=== PATIENT | female | born 1930 | race Caucasian/White ===

== ENCOUNTER 2017-06-21 16:32 | Emergency (ER) | payer OTHER ==
[2017-06-21] MEDS ORDERED: ONDANSETRON 4 MG/2 ML VIAL ONE ×2 (17:43→19:22)
[2017-06-21] MEDS ORDERED: FENTANYL CITR 100 MCG/2 ML ONE (17:43)
[2017-06-21] MEDS ORDERED: NA CHLORIDE 0.9% 250 ML ONE (17:43)
[2017-06-21 17:50] LABS: Absolute Monocytes 0.6 K/uL (0.1-1.3); Absolute Neutrophil 4.2 K/uL (1.8-8.0); Basophils % 0.7 % (0-1.3); Eosinophils % 1.7 % (0-4.4); Hematocrit 42.6 % (36.0-45.0); Lymphocytes % 29.1 % (15.3-44.8); MCH 28.8 pg (27.0-35.0); MCV 87.5 fL (80-100); MPV 8.8 fL (7.6-11.3); Monocytes % 8.4 % (3.3-12.3); RBC Red Blood Cell Count 4.87 M/uL (3.86-4.86)
[2017-06-21 18:02] LABS: Potassium 3.4 mEq/L (3.6-5.0)
[2017-06-21 18:05] LABS: Albumin 3.7 g/dL (3.2-5.5); Bilirubin Total 0.6 mg/dL (0.3-1.2); Protein, Total 7.2 g/dL (6.0-8.3)
--- NOTE | 2017-06-21 18:05 | RAD REPORT ---
EXAM DESCRIPTION: RAD - Shoulder Left 2 View - 06/21/2017 5:49 pm CLINICAL HISTORY: Pain COMPARISON: None. FINDINGS: Subcoracoid dislocation of the humeral head is suspected. No gross fracture seen.
[2017-06-21] MEDS ORDERED: NA CHLORIDE 0.9% 1,000 ML ONE (18:34)
[2017-06-21] MEDS ORDERED: MIDAZOLAM HCL 2 MG/2 ML INJ ONE (18:41)
[2017-06-21] MEDS ORDERED: ETOMIDATE 20 MG/10 ML VIAL IV ONE (18:41)
--- NOTE | 2017-06-21 19:21 | ER ---
Nurse's Notes [facility] Name: Wilma Ascencio Age: 87 yrs Sex: Female : 1930 Arrival Date: 06/21/2017 Time: 16:33 Bed 8 Private MD: Griffin Beverly Diagnosis: Dislocation of other parts of left shoulder girdle-reduced;Essential (primary) hypertension Presentation: 06/21 16:39 Presenting complaint: Patient states: Mechanical fall from standing, denies trauma to la1 head or neck. Pain in left shoulder. Transition of care: patient was not received from another setting of care. Onset of symptoms was June 21, 2017. Initial Sepsis Screen: Does the patient meet any 2 criteria? No. Patient's initial sepsis screen is negative. Does the patient have a suspected source of infection? No. Patient's initial sepsis screen is negative. Care prior to arrival: None. 16:39 Method Of Arrival: Wheelchair la1 16:39 Acuity: ALAN 3 la1 17:00 Mechanism of Injury: No Mechanism of Injury. kr2 22:38 Trauma event details: Injury occurred in the [facility]. jd3 Trauma Activation: Not Applicable Physician: ED Physician; Name: ; Notified At: ; Arrived At: Physician: General Surgeon; Name: ; Notified At: ; Arrived At: Physician: Radiology; Name: ; Notified At: ; Arrived At: Physician: Respiratory; Name: ; Notified At: ; Arrived At: Physician: Lab; Name: ; Notified At: ; Arrived At: Historical: - Allergies: 16:40 Amoxicillin; la1 16:40 Codeine; la1 - PMHx: 16:40 Hyperlipidemia; Hypertension; la1 - Immunization history:: Adult Immunizations up to date. - Social history:: Smoking status: Patient/guardian denies using tobacco. - Immunization history: Last tetanus immunization: - up to date. - Family history:: not pertinent. Screenin:00 Abuse screen: Denies threats or abuse. Denies injuries from another. Nutritional kr2 screening: No deficits noted. Tuberculosis screening: No symptoms or risk factors identified. Fall Risk Fall in past 12 months (25 points). IV access (20 points). Primary Survey: 17:00 Breathing/Chest: Respiratory pattern: regular, Respiratory effort: spontaneous, kr2 unlabored, Breath sounds: clear, bilaterally. Chest inspection: symmetrical rise and fall of the chest. Circulation: Cardiac rhythm: sinus rhythm Pulses: palpable right radial artery and left radial artery. Disability Alert. 18:45 Reassessment Breathing/Chest Respiratory pattern Regular Respiratory effort Spontaneous kr2 Unlabored Circulation Heart rhythm Sinus rhythm Disability Alert. Assessment: 17:00 General: Appears in no apparent distress. uncomfortable, well groomed, well developed, kr2 well nourished, Behavior is calm, cooperative, appropriate for age. Pain: Complains of pain in left shoulder Pain radiates to left arm Pain currently is 10 out of 10 on a pain scale. Quality of pain is described as aching, Is continuous, Alleviated by nothing. Aggravated by repositioning. Neuro: Level of Consciousness is awake, alert, obeys commands, Oriented to person, place, time, situation, Appropriate for age. Cardiovascular: Denies chest pain, Capillary refill < 3 seconds in bilateral fingers Patient's skin is warm and dry. Respiratory: Airway is patent Respiratory effort is even, unlabored, Respiratory pattern is regular, symmetrical. GI: Abdomen is flat, non-distended. : No signs and/or symptoms were reported regarding the genitourinary system. Derm: Skin is intact, is fragile, Skin is pink, warm \T\ dry. Musculoskeletal: Circulation, motion, and sensation intact. Range of motion: limited in left shoulder Bony deformity noted of left shoulder. Injury Description: Deformity sustained to left shoulder is dislocated. 18:40 Reassessment: pt aa\T\ox4 at this time, pt son at bedside, pt was moved from ER bed 23 to ER bed 3 for Conscious sedation procedure, pt stated understanding of procedures to be done, pt son stated understanding of procedures, awaiting for closed shoulder reduction at this time. 19:30 Reassessment: Patient appears in no apparent distress at this time. Patient and/or sg family updated on plan of care and expected duration. Pain level reassessed. Patient is alert, oriented x 3, equal unlabored respirations, skin warm/dry/pink. pt reports feeling better, denies pain in the shoulder at this time, pt is aa\T\ox4, pt son at bedside to transport pt to residence. 19:50 Reassessment: Patient appears in no apparent distress at this time. Patient and/or sg family updated on plan of care and expected duration. Pain level reassessed. Patient is alert, oriented x 3, equal unlabored respirations, skin warm/dry/pink. at bedside re evaluating pt at this time, orders received for IV phenergan 6.25 mg, and a Head CT without contrast. 19:57 Reassessment: Patient appears in no apparent distress at this time. No changes from jd3 previously documented assessment. Patient and/or family updated on plan of care and expected duration. Pain level reassessed. Patient is alert, oriented x 3, equal unlabored respirations, skin warm/dry/pink. 20:17 Reassessment: Patient appears in no apparent distress at this time. Patient and/or jd3 family updated on plan of care and expected duration. Pain level reassessed. Patient is alert, oriented x 3, equal unlabored respirations, skin warm/dry/pink. pt back from CT, waiting on results before discharge. 20:45 Reassessment: pt appears to be sleeping, eyes closed, resp unlabored, IV site intact, bb patent with fluids infusing family at bedside. Awaiting son to return for transportation home, family verbalized understanding of and agree to plan of care discharge instructions given. 21:01 Reassessment: Family states pt is too sleepy to get up will monitor here for a short bb time until she is more alert. 21:58 Reassessment: Patient appears in no apparent distress at this time. No changes from jd3 previously documented assessment. Patient and/or family updated on plan of care and expected duration. Pain level reassessed. Patient is alert, oriented x 3, equal unlabored respirations, skin warm/dry/pink. 22:38 Reassessment: Patient appears in no apparent distress at this time. Patient and/or jd3 family updated on plan of care and expected duration. Pain level reassessed. Patient is alert, oriented x 3, equal unlabored respirations, skin warm/dry/pink. Patient states feeling better. Vital Signs: 16:40 BP 122 / 90; Pulse 84; Resp 16; Temp 98.3; Pulse Ox 98% on R/A; Weight 55.34 kg; Height la1 5 ft. 3 in. (160.02 cm); 18:00 BP 148 / 75; Pulse 80; Resp 16; Pulse Ox 99% on R/A; kr2 19:21 BP 178 / 94; Pulse 77; Resp 16; Pulse Ox 95% on R/A; mt 19:30 BP 175 / 90; Pulse 89; Resp 18; Pulse Ox 94% on R/A; sg 20:31 BP 134 / 76; Pulse 84; Resp 16; Pulse Ox 99% on 2 lpm NC; mt 20:47 BP 150 / 67; Pulse 77; Resp 14 S; Temp 97.6(O); Pulse Ox 98% on R/A; Pain 4/10; bb 22:34 BP 138 / 68; Pulse 60; Resp 16 S; Pulse Ox 98% on R/A; jd3 16:40 Body Mass Index 21.61 (55.34 kg, 160.02 cm) la1 Sepideh Coma Score: 17:00 Eye Response: spontaneous(4). Verbal Response: oriented(5). Motor Response: obeys kr2 commands(6). Total: 15. 19:30 Eye Response: spontaneous(4). Verbal Response: oriented(5). Motor Response: obeys sg commands(6). Total: 15. Trauma Score (Adult): 17:00 Eye Response: spontaneous(1); Verbal Response: oriented(1); Motor Response: obeys kr2 commands(2); Systolic BP: > 89 mm Hg(4); Respiratory Rate: 10 to 29 per min(4); Sepideh Score: 15; Trauma Score: 12 19:30 Eye Response: spontaneous(1); Verbal Response: oriented(1); Motor Response: obeys sg commands(2); Systolic BP: > 89 mm Hg(4); Respiratory Rate: 10 to 29 per min(4); Sepideh Score: 15; Trauma Score: 12 ED Course: 16:33 Patient arrived in ED. as 16:33 Griffin Beverly MD is Private Physician. as 16:40 Triage completed. la1 16:41 Arm band placed on left wrist. la1 17:00 Patient has correct armband on for positive identification. Bed in low position. Call kr2 light in reach. Side rails up X2. Adult w/ patient. 17:00 Patient maintains SpO2 saturation greater than 95% on room air. kr2 17:00 Thermoregulation: warm blanket given to patient. kr2 17:11 Christopher Day MD is Attending Physician. [facility] 17:24 Hiral Yu, RN is Primary Nurse. kr2 17:40 Inserted saline lock: 24 gauge in right forearm, using aseptic technique. Blood kr2 collected. 17:49 Shoulder Left (2 View) XRAY In Process Unspecified. EDMS 18:15 Patient accidentally pulled IV out. Catheter intact, bleeding controlled, pressure kr2 dressing applied. 18:24 Inserted saline lock: 22 gauge in right forearm, using aseptic technique. dh3 18:48 Consent for conscious sedation explained by staff, explained by physician, signed by kr2 guardian. 19:09 X-ray completed. Portable x-ray completed in exam room. Patient tolerated procedure ag1 well. Note: POST REDUCTION. 19:11 Shoulder (1 View) XRAY In Process Unspecified. EDMS 19:20 Griffin Beverly MD is Referral Physician. viktor 19:20 Guillermo Ramirez MD is Referral Physician. viktor 20:[address] via stretcher. sg 20:07 CT completed. Patient moved back from CT. cw1 20:08 CT Head Brain wo Cont In Process Unspecified. EDMS 20:48 IV discontinued, intact, bleeding controlled, No redness/swelling at site. Pressure bb dressing applied. 22:35 Assist provider with reduction of left shoulder. jd3 Administered Medications: 17:52 Drug: fentaNYL (PF) 25 mcg Route: IVP; Site: right wrist; kr2 17:53 Drug: NS 0.9% 250 ml Route: IV; Rate: bolus; Site: right wrist; kr2 17:54 CANCELLED (Duplicate Order): Zofran 4 mg IM once kr2 17:55 Drug: Zofran 4 mg Route: IVP; Site: right wrist; kr2 18:37 Drug: NS 0.9% 1000 ml Route: IV; Rate: 125 ml/hr; Site: right forearm; ss 18:37 Drug: fentaNYL (PF) 25 mcg Route: IVP; Site: right forearm; ss 22:46 Follow up: Response: Pain is decreased jd3 18:45 Drug: Etomidate 8 mg Route: IVP; Site: right antecubital; sg 19:15 Follow up: Response: No adverse reaction sg 18:48 Drug: Versed 2 mg Route: IVP; Site: right antecubital; sg 19:15 Follow up: Response: No adverse reaction sg 19:30 Drug: Zofran 4 mg Route: IVP; Site: right antecubital; sg 19:52 Follow up: Response: No adverse reaction; Nausea is decreased sg 19:36 Not Given (Physician Discretion): Etomidate 10 mg IVP once; hold for procedure sg 20:01 Drug: Phenergan 6.25 mg Route: IVP; Site: right antecubital; sg 22:46 Follow up: Response: Nausea is decreased jd3 Intake: 17:00 PO: 0ml; Total: 0ml. kr2 Outcome: 19:20 Discharge ordered by MD. hoang 22:36 Discharged to home via wheelchair. jd3 22:36 Condition: stable 22:36 Discharge instructions given to patient, family, Instructed on discharge instructions, follow up and referral plans. Demonstrated understanding of instructions, follow-up care. 22:37 Patient's length of stay in the Emergency Department was greater than 2 hours. jd3 Patient's length of stay was extended due to staffing issues within the emergency department. pt coming out of sedationPatient's length of stay extended due to 22:39 Patient left the ED. jd3 Signatures: Dispatcher [employer] EDMS Reji Abel, RN RN Christopher Darby MD MD cha Martinez, Amelia as Ballard, Brenda RN Heike Mena RN RN ss Woodley, Crystal cw1 Indio Grey RN RN Mariana Peterson Moriah mt Herrera, Deanna 3 Danilo Tomas RN RN jd3 Hiral Yu RN RN kr2 Corrections: (The following items were deleted from the chart) 18:43 17:00 Fall Risk None identified. kr2 kr2 19:36 18:45 Etomidate 10 mg IVP in right antecubital sg sg
--- NOTE | 2017-06-21 19:21 | EDPHYS ---
Physician Documentation [facility] Name: Wilma Ascencio Age: 87 yrs Sex: Female : 1930 Arrival Date: 06/21/2017 Time: 16:33 Bed 8 Private MD: Griffin Beverly ED Physician Christopher Day HPI: 06/21 17:21 This 87 yrs old Female presents to ER via Wheelchair with complaints of Fall viktor Injury, Shoulder Pain. 17:21 Details of fall: The patient fell from an upright position, while walking. Onset: The viktor symptoms/episode began/occurred just prior to arrival. Associated injuries: The patient sustained anterior aspect of left shoulder and posterior aspect of left shoulder, decreased range of motion, painful injury, swelling. Severity of symptoms: At their worst the symptoms were mild, moderate, in the emergency department the symptoms are unchanged. Historical: - Allergies: 16:40 Amoxicillin; la1 16:40 Codeine; la1 - PMHx: 16:40 Hyperlipidemia; Hypertension; la1 - Immunization history:: Adult Immunizations up to date. - Social history:: Smoking status: Patient/guardian denies using tobacco. - Immunization history: Last tetanus immunization: - up to date. - Family history:: not pertinent. ROS: 17:21 Constitutional: Negative for fever, chills, and weight loss, Eyes: Negative for injury, viktor pain, redness, and discharge, ENT: Negative for injury, pain, and discharge, Neck: Negative for injury, pain, and swelling, Cardiovascular: Negative for chest pain, palpitations, and edema, Respiratory: Negative for shortness of breath, cough, wheezing, and pleuritic chest pain, Abdomen/GI: Negative for abdominal pain, nausea, vomiting, diarrhea, and constipation, Back: Negative for injury and pain, : Negative for injury, bleeding, discharge, and swelling, Skin: Negative for injury, rash, and discoloration, Neuro: Negative for headache, weakness, numbness, tingling, and seizure, Psych: Negative for depression, anxiety, suicide ideation, homicidal ideation, and hallucinations, Allergy/Immunology: Negative for hives, rash, and allergies, Endocrine: Negative for neck swelling, polydipsia, polyuria, polyphagia, and marked weight changes, Hematologic/Lymphatic: Negative for swollen nodes, abnormal bleeding, and unusual bruising. 17:21 MS/extremity: Positive for injury or acute deformity, decreased range of motion, tenderness, of the anterior aspect of left shoulder and posterior aspect of left shoulder. Exam: 17:21 Constitutional: This is a well developed, well nourished patient who is awake, alert, viktor and in no acute distress. Head/Face: Normocephalic, atraumatic. Eyes: Pupils equal round and reactive to light, extra-ocular motions intact. Lids and lashes normal. Conjunctiva and sclera are non-icteric and not injected. Cornea within normal limits. Periorbital areas with no swelling, redness, or edema. ENT: Nares patent. No nasal discharge, no septal abnormalities noted. Tympanic membranes are normal and external auditory canals are clear. Oropharynx with no redness, swelling, or masses, exudates, or evidence of obstruction, uvula midline. Mucous membranes moist. Neck: Trachea midline, no thyromegaly or masses palpated, and no cervical lymphadenopathy. Supple, full range of motion without nuchal rigidity, or vertebral point tenderness. No Meningismus. Chest/axilla: Normal chest wall appearance and motion. Nontender with no deformity. No lesions are appreciated. Cardiovascular: Regular rate and rhythm with a normal S1 and S2. No gallops, murmurs, or rubs. Normal PMI, no JVD. No pulse deficits. Respiratory: Lungs have equal breath sounds bilaterally, clear to auscultation and percussion. No rales, rhonchi or wheezes noted. No increased work of breathing, no retractions or nasal flaring. Abdomen/GI: Soft, non-tender, with normal bowel sounds. No distension or tympany. No guarding or rebound. No evidence of tenderness throughout. Back: No spinal tenderness. No costovertebral tenderness. Full range of motion. Female : Normal external genitalia. Skin: Warm, dry with normal turgor. Normal color with no rashes, no lesions, and no evidence of cellulitis. Neuro: Awake and alert, GCS 15, oriented to person, place, time, and situation. Cranial nerves II-XII grossly intact. Motor strength 5/5 in all extremities. Sensory grossly intact. Cerebellar exam normal. Normal gait. Psych: Awake, alert, with orientation to person, place and time. Behavior, mood, and affect are within normal limits. 17:21 Musculoskeletal/extremity: Extremities: noted in the anterior aspect of left shoulder and posterior aspect of left shoulder: decreased ROM, pain, tenderness. Vital Signs: 16:40 BP 122 / 90; Pulse 84; Resp 16; Temp 98.3; Pulse Ox 98% on R/A; Weight 55.34 kg; Height la1 5 ft. 3 in. (160.02 cm); 18:00 BP 148 / 75; Pulse 80; Resp 16; Pulse Ox 99% on R/A; kr2 19:21 BP 178 / 94; Pulse 77; Resp 16; Pulse Ox 95% on R/A; mt 19:30 BP 175 / 90; Pulse 89; Resp 18; Pulse Ox 94% on R/A; sg 20:31 BP 134 / 76; Pulse 84; Resp 16; Pulse Ox 99% on 2 lpm NC; mt 20:47 BP 150 / 67; Pulse 77; Resp 14 S; Temp 97.6(O); Pulse Ox 98% on R/A; Pain 4/10; bb 22:34 BP 138 / 68; Pulse 60; Resp 16 S; Pulse Ox 98% on R/A; jd3 16:40 Body Mass Index 21.61 (55.34 kg, 160.02 cm) la1 Sepideh Coma Score: 17:00 Eye Response: spontaneous(4). Verbal Response: oriented(5). Motor Response: obeys kr2 commands(6). Total: 15. 19:30 Eye Response: spontaneous(4). Verbal Response: oriented(5). Motor Response: obeys sg commands(6). Total: 15. Trauma Score (Adult): 17:00 Eye Response: spontaneous(1); Verbal Response: oriented(1); Motor Response: obeys kr2 commands(2); Systolic BP: > 89 mm Hg(4); Respiratory Rate: 10 to 29 per min(4); Sepideh Score: 15; Trauma Score: 12 19:30 Eye Response: spontaneous(1); Verbal Response: oriented(1); Motor Response: obeys sg commands(2); Systolic BP: > 89 mm Hg(4); Respiratory Rate: 10 to 29 per min(4); Sepideh Score: 15; Trauma Score: 12 Procedures: 18:10 Reduction: of the left shoulder, using traction, manipulation, Immobilized with [facility] shoulder immobilizer. Patient tolerated well. Post reduction film - reveals normal alignment. MDM: 17:12 Patient medically screened. [facility] 17:22 Data reviewed: vital signs, nurses notes, lab test result(s), EKG, radiologic studies, [facility] plain films. 06/21 17:20 Order name: CBC with Diff; Complete Time: 18:05 [facility] 06/21 17:20 Order name: Comprehensive Metabolic Panel; Complete Time: 18:05 [facility] 06/21 17:20 Order name: Shoulder Left (2 View) XRAY; Complete Time: 18:07 [facility] 06/21 19:06 Order name: Shoulder (1 View) XRAY; Complete Time: 20:45 06/21 19:51 Order name: CT Head Brain wo Cont; Complete Time: 20:45 [facility] 06/21 17:20 Order name: EKG; Complete Time: 17:21 [facility] 06/21 17:20 Order name: EKG - Nurse/Tech; Complete Time: 17:56 [facility] 06/21 17:20 Order name: NPO; Complete Time: 17:25 [facility] 06/21 18:11 Order name: Shoulder Immobilizer; Complete Time: 19:35 [facility] Administered Medications: 17:52 Drug: fentaNYL (PF) 25 mcg Route: IVP; Site: right wrist; kr2 17:53 Drug: NS 0.9% 250 ml Route: IV; Rate: bolus; Site: right wrist; kr2 17:54 CANCELLED (Duplicate Order): Zofran 4 mg IM once kr2 17:55 Drug: Zofran 4 mg Route: IVP; Site: right wrist; kr2 18:37 Drug: NS 0.9% 1000 ml Route: IV; Rate: 125 ml/hr; Site: right forearm; ss 18:37 Drug: fentaNYL (PF) 25 mcg Route: IVP; Site: right forearm; ss 22:46 Follow up: Response: Pain is decreased jd3 18:45 Drug: Etomidate 8 mg Route: IVP; Site: right antecubital; sg 19:15 Follow up: Response: No adverse reaction sg 18:48 Drug: Versed 2 mg Route: IVP; Site: right antecubital; sg 19:15 Follow up: Response: No adverse reaction sg 19:30 Drug: Zofran 4 mg Route: IVP; Site: right antecubital; sg 19:52 Follow up: Response: No adverse reaction; Nausea is decreased sg 19:36 Not Given (Physician Discretion): Etomidate 10 mg IVP once; hold for procedure sg 20:01 Drug: Phenergan 6.25 mg Route: IVP; Site: right antecubital; sg 22:46 Follow up: Response: Nausea is decreased jd3 Disposition: 06/21/17 19:20 Discharged to Home. Impression: Dislocation of other parts of left shoulder girdle - reduced, Essential (primary) hypertension. - Condition is Stable. - Discharge Instructions: Shoulder Dislocation, Hypertension, Shoulder Pain, Shoulder Pain, [id number], Hypertension, [id number], Shoulder Dislocation, [id number]. - Prescriptions for Tramadol 50 mg Oral Tablet - take 1 tablet by ORAL route every 8 hours as needed; 20 tablet. Motrin IB 200 mg Oral Tablet - take 1 tablet by ORAL route every 6 hours As needed as needed with food; 20 tablet. Zofran 4 mg Oral Tablet - take 1 tablet by ORAL route every 12 hours As needed; 14 tablet. - Medication Reconciliation Form, Thank You Letter, Antibiotic Education, Prescription Opioid Use form. - Follow up: Griffin Beverly; When: 2 - 3 days; Reason: Recheck today's complaints, Continuance of care, Re-evaluation by your physician. Follow up: Dr. Guillermo Ramirez; When: 1 - 2 days; Reason: Recheck today's complaints, Re-evaluation by your physician. - Problem is new. - Symptoms have improved. Signatures: Dispatcher [employer] EDDC Sophia Galo, LABORATORY SUPERVISOR-C LABORATORY SUPERVISOR-Ckb Reji Abel RN RN Christopher Darby MD MD cha Smirch, Shelby RN MCKENNA ss Indio Grey RN RN la1 Danilo Tomas RN RN Hiral Basurto RN RN kr2 Corrections: (The following items were deleted from the chart) 17:54 17:20 Zofran 4 mg IM once ordered. viktor garcia
--- NOTE | 2017-06-21 19:36 | RAD REPORT ---
EXAM DESCRIPTION: RAD - Shoulder 1 View - 06/21/2017 7:10 pm CLINICAL HISTORY: Post reduction COMPARISON: Pre reduction radiographs. FINDINGS: Previously noted humeral head dislocation has been reduced. No gross fracture seen.
[2017-06-21] MEDS ORDERED: PROMETHAZINE 25 MG/ML VIAL ONE (19:57)
--- NOTE | 2017-06-21 20:20 | RAD REPORT ---
EXAM DESCRIPTION: CT - Head Brain Wo Cont - 06/21/2017 8:09 pm CLINICAL HISTORY: Fall, head injury COMPARISON: 10/04/2015 TECHNIQUE: All CT scans are performed using dose optimization technique as appropriate and may inclu de automated exposure control or mA/KV adjustment according to patient size. FINDINGS: No intracranial hemorrhage, hydrocephalus or extra-axial fluid collection.Mild generalized brain atrophy is present with moderate periventricular and deep white matter chronic microvascular i schemic changes.No areas of brain edema or evidence of midline shift. The paranasal sinuses and mastoids are clear. The calvarium is intact. IMPRESSION: No acute intracranial abnormality.
--- NOTE | 2017-06-22 07:04 | EKG ---
Test Date: 2017-06-21 Test Time: 18:06:37 Slabbing Machine Operator: [place] MEASUREMENT RESULTS: Intervals: Rate: 88 NE: 140 QRSD: 80 QT: 374 QTc: 452 [place]: P: 74 NE: 140 QRS: 48 T: 80 INTERPRETIVE STATEMENTS: Normal sinus rhythm normal ECG Compared to ECG 10/30/2015 07:34:09 no significant change from previous ECG Electronically Signed On 06-22-17 07:03:31 CDT by Marino Mckeon
== END 2017-06-21 22:39 | disposition home or self-care (01) ==
LOC: ER 16:32
PROC: 0RSKXZZ Reposition Left Shoulder Joint, External Approach (ICD-10-PCS; principal; 2017-06-21)
DX: S43.395A Dislocation of other parts of left shoulder girdle, initial encounter (principal); W18.30XA Fall on same level, unspecified, initial encounter; Y93.01 Activity, walking, marching and hiking; Y92.9 Unspecified place or not applicable; I10 Essential (primary) hypertension; Z88.5 Allergy status to narcotic agent; Z88.0 Allergy status to penicillin
CPT/HCPCS: 23650; 36415; 70450; 73020; 73030; 80053; 85025; 93005; 99285; J2250; J2405 ×2; J2550; J3010; J7030

== ENCOUNTER 2017-06-22 00:20 | Observation (INO) | payer OTHER ==
[2017-06-22 01:19] LABS: Absolute Lymphocytes (CBC) 0.8 K/uL (0.7-4.9); Absolute Monocytes 1.1 K/uL (0.1-1.3); Absolute Neutrophil 12.2 K/uL (1.8-8.0); Basophils % 0.3 % (0-1.3); Hematocrit 37.6 % (36.0-45.0); Lymphocytes % 5.8 % (15.3-44.8); MCH 28.5 pg (27.0-35.0); MCV 87.4 fL (80-100); MPV 9.4 fL (7.6-11.3); Monocytes % 7.9 % (3.3-12.3); RBC Red Blood Cell Count 4.31 M/uL (3.86-4.86)
[2017-06-22 02:09] LABS: Blood Morphology Comment NOT SEEN (NOT SEEN); Platelet Estimate ADEQ; Urine White Blood Cell Casts OK
[2017-06-22 03:48] LABS: Potassium 4.4 mEq/L (3.6-5.0)
[2017-06-22 04:13] LABS: Albumin 3.8 g/dL (3.2-5.5); Bilirubin Direct 0.1 mg/dL (0-0.2); Bilirubin Total 0.6 mg/dL (0.3-1.2); CKMB Creatine Kinase MB 9.9 ng/ml (0.3-4.0); Magnesium 1.7 mg/dL (1.8-2.5); Protein, Total 5.9 g/dL (6.0-8.3)
--- NOTE | 2017-06-22 04:39 | EDPHYS ---
Physician Documentation [facility] Name: Wilma Ascencio Age: 87 yrs Sex: Female : 1930 Arrival Date: 06/22/2017 Time: 00:21 Bed 6 Private MD: ED Physician Jimmy Santiago HPI: 06/22 01:47 This 87 yrs old Female presents to ER via EMS with complaints of unresponsive.tw4 01:47 The patient presents with decreased responsiveness. Onset: The symptoms/episode tw4 began/occurred today. Possible causes: CVA or TIA, unknown. Associated signs and symptoms: The patient has no apparent associated signs or symptoms. 01:51 The patient has been recently seen at the [facility] Emergency tw4 Department, just prior to arrival, just seen and released. Pt just had conscious sedation for reduction of shoulder. Historical: - Allergies: 00:27 Codeine; bp 00:27 Amoxicillin; bp - Home Meds: 00:27 Verapamil Oral [Active]; aspirin 81 mg Oral TbEC 1 tab once daily [Active]; bp atorvastatin Oral [Active]; - PMHx: 00:27 Hypertension; Hyperlipidemia; bp - Immunization history:: Adult Immunizations up to date. - Social history:: Smoking status: Patient/guardian denies using tobacco. ROS: 01:52 Constitutional: Negative for fever, chills, and weight loss, Cardiovascular: Negative tw4 for chest pain, palpitations, and edema, Respiratory: Negative for shortness of breath, cough, wheezing, and pleuritic chest pain, Abdomen/GI: Negative for abdominal pain, nausea, vomiting, diarrhea, and constipation, Back: Negative for injury and pain, Skin: Negative for injury, rash, and discoloration, Neuro: Negative for headache, weakness, numbness, tingling, and seizure. Exam: 03:10 Constitutional: This is a well developed, well nourished patient who is awake, alert, tw4 and in no acute distress. Head/Face: Normocephalic, atraumatic. Cardiovascular: Regular rate and rhythm with a normal S1 and S2. No gallops, murmurs, or rubs. Normal PMI, no JVD. No pulse deficits. Respiratory: Lungs have equal breath sounds bilaterally, clear to auscultation and percussion. No rales, rhonchi or wheezes noted. No increased work of breathing, no retractions or nasal flaring. Abdomen/GI: Soft, non-tender, with normal bowel sounds. No distension or tympany. No guarding or rebound. No evidence of tenderness throughout. Back: No spinal tenderness. No costovertebral tenderness. Full range of motion. MS/ Extremity: Pulses equal, no cyanosis. Neurovascular intact. Full, normal range of motion. Neuro: Awake and alert, GCS 15, oriented to person, place, time, and situation. Cranial nerves II-XII grossly intact. Motor strength 5/5 in all extremities. Sensory grossly intact. Cerebellar exam normal. Normal gait. 03:10 ECG was reviewed by the Attending Physician. Vital Signs: 00:27 BP 142 / 99; Pulse 63; Resp 16; Temp 98; Pulse Ox 100% on R/A; Weight 49.9 kg (R); bp 01:19 BP 143 / 78; Pulse 62; Resp 17 S; Pulse Ox 100% on 2 lpm NC; jd3 02:24 BP 141 / 68; Pulse 64; Resp 17 S; Pulse Ox 100% on 2 lpm NC; jd3 03:24 BP 129 / 58; Pulse 67; Resp 17 S; Pulse Ox 100% on 2 lpm NC; jd3 04:03 BP 127 / 57; Pulse 63; Resp 18 S; Pulse Ox 100% on R/A; Pain 0/10; jd3 05:08 BP 132 / 62; Pulse 63; Resp 17 S; Pulse Ox 100% on 2 lpm NC; Pain 0/10; jd3 06:20 BP 154 / 70; Pulse 71; Resp 17 S; Pulse Ox 100% on R/A; jd3 MDM: 00:32 Patient medically screened. tw4 04:39 Differential Diagnosis: electrolyte abnormality, alcohol intoxication, pneumonia. Data tw4 reviewed: vital signs, nurses notes. Counseling: I had a detailed discussion with the patient and/or guardian regarding: the historical points, exam findings, and any diagnostic results supporting the discharge/admit diagnosis. Physician consultation: Jt Hammonds MD regarding admission, patient's condition, need to come to ED to see patient, and will see patient in ED. Admission orders: after a detailed discussion of the patient's condition and case, the admit orders are written by me. 06/22 00:33 Order name: Basic Metabolic Panel 06/22 00:33 Order name: BNP; Complete Time: 03:54 06/22 00:33 Order name: CBC with Diff; Complete Time: 02:28 06/22 04:41 Interpretation: Normal except: WBC 14.1; LYM% 5.8; JOSE% 86.0; NEUT A 12.2. 06/22 00:33 Order name: Ckmb; Complete Time: 04:40 06/22 04:40 Interpretation: Abnormal: CKMB 9.9. 06/22 00:33 Order name: CPK; Complete Time: 04:40 06/22 04:40 Interpretation: Abnormal: CPK 410. 06/22 00:33 Order name: LFT's; Complete Time: 04:40 06/22 04:40 Interpretation: Abnormal: GLOB 2.1; TP 5.9. 06/22 00:33 Order name: Magnesium; Complete Time: 04:40 06/22 04:41 Interpretation: Abnormal: MG 1.7. 06/22 00:33 Order name: PT-INR; Complete Time: 03:54 06/22 00:33 Order name: Ptt, Activated; Complete Time: 03:54 06/22 00:33 Order name: Troponin (emerg Dept Use Only); Complete Time: 03:54 06/22 00:33 Order name: EKG; Complete Time: 00:33 06/22 00:33 Order name: Cardiac monitoring; Complete Time: 00:35 06/22 00:33 Order name: Basic Metabolic Panel; Complete Time: 04:40 ED06/22 04:41 Interpretation: Normal except: CA 8.7; GLUC 129; NA 132. 06/22 02:09 Order name: CBC Smear Scan; Complete Time: 02:28 EDMS 06/22 00:33 Order name: EKG - Nurse/Tech; Complete Time: 00:49 06/22 00:33 Order name: IV Saline Lock; Complete Time: 01:18 06/22 00:33 Order name: Labs collected and sent; Complete Time: 01:18 06/22 00:33 Order name: O2 Per Protocol; Complete Time: 00:35 06/22 00:33 Order name: O2 Sat Monitoring; Complete Time: 00:35 tw4 EC:10 Rate is 62 beats/min. Rhythm is regular. QRS [place] is Normal. HI interval is normal. QRS tw4 interval is normal. QT interval is normal. No Q waves. T waves are Normal. No ST changes noted. Clinical impression: Normal ECG. Interpreted by me. Reviewed by me. Administered Medications: No medications were administered Disposition: 06/22/17 04:39 Hospitalization ordered by Jt Hammonds for Observation. Preliminary diagnosis is Altered mental status, unspecified. - Bed requested for Telemetry/MedSurg (observation). - Status is Observation. jd3 - Condition is Stable. - Problem is new. - Symptoms have improved. UTI on Admission? No Signatures: Dispatcher [employer] EDGeorgina Salamanca RN Danilo Bird RN RN jd3 Peltier, Brian, RN RN bp Wadley, Terrence, MD MD tw4
--- NOTE | 2017-06-22 04:39 | ER ---
Nurse's Notes [facility] Name: Wilma Ascencio Age: 87 yrs Sex: Female : 1930 Arrival Date: 06/22/2017 Time: 00:21 Bed 6 Private MD: Diagnosis: Altered mental status, unspecified Presentation: 06/22 00:25 Presenting complaint: EMS states: SHE WAS UNRESPONSIVE ON SCENE, INITIAL BP 67/35. bp Transition of care: patient was not received from another setting of care. Onset of symptoms is unknown. Initial Sepsis Screen: Does the patient meet any 2 criteria? No. Patient's initial sepsis screen is negative. Does the patient have a suspected source of infection? No. Patient's initial sepsis screen is negative. Care prior to arrival: Glucose check: 172. 00:25 Method Of Arrival: EMS: [facility] bp 00:25 Acuity: ALAN 3 bp Triage Assessment: 00:27 General: Appears in no apparent distress. comfortable, slender, Behavior is calm, bp cooperative, appropriate for age. Pain: Denies pain. EENT: No deficits noted. Neuro: Level of Consciousness is awake, alert, obeys commands, Oriented to person, place, time, situation, Appropriate for age. Cardiovascular: Rhythm is sinus bradycardia. Respiratory: Airway is patent Respiratory effort is even, unlabored, Respiratory pattern is regular, symmetrical. GI: No deficits noted. : No signs and/or symptoms were reported regarding the genitourinary system. Derm: No deficits noted. Musculoskeletal: No signs and/or symptoms reported regarding the musculoskeletal system. Historical: - Allergies: 00:27 Codeine; bp 00:27 Amoxicillin; bp - Home Meds: 00:27 Verapamil Oral [Active]; aspirin 81 mg Oral TbEC 1 tab once daily [Active]; bp atorvastatin Oral [Active]; - PMHx: 00:27 Hypertension; Hyperlipidemia; bp - Immunization history:: Adult Immunizations up to date. - Social history:: Smoking status: Patient/guardian denies using tobacco. Screenin:31 Abuse screen: Denies threats or abuse. Denies injuries from another. Nutritional bp screening: No deficits noted. Tuberculosis screening: No symptoms or risk factors identified. Fall Risk None identified. No fall in past 12 months (0 pts). No secondary diagnosis (0 pts). No IV (0 pts). Ambulatory Aid- Crutches/Cane/Walker (15 pts). Gait- Weak (10 pts.). Mental Status- Oriented to own ability (0 pts). Total [place]una Fall Scale indicates No Risk (0-24 pts). Assessment: 00:31 General: Appears in no apparent distress. uncomfortable, Behavior is calm, cooperative, jd3 appropriate for age. Pain: Complains of pain in left shoulder. Neuro: Level of Consciousness is awake, alert, obeys commands, Oriented to person, place, time, situation, Jig Builder Helper are equal bilaterally Gait is unsteady, Speech is normal, Pupils are PERRLA, Intact Reports dizziness. Cardiovascular: Heart tones S1 S2 present Capillary refill < 3 seconds Patient's skin is warm and dry. Respiratory: Airway is patent Respiratory effort is even, unlabored, Respiratory pattern is regular, symmetrical, Breath sounds are clear bilaterally. GI: Abdomen is round Patient currently denies nausea, vomiting. : No signs and/or symptoms were reported regarding the genitourinary system. EENT: No signs and/or symptoms were reported regarding the EENT system. Derm: Skin is intact, Skin is dry, Skin is normal, Skin temperature is warm. Musculoskeletal: Circulation, motion, and sensation intact. Range of motion: limited in left shoulder. 01:19 Reassessment: Patient appears in no apparent distress at this time. Patient and/or jd3 family updated on plan of care and expected duration. Pain level reassessed. Patient is alert, oriented x 3, equal unlabored respirations, skin warm/dry/pink. 01:31 Reassessment: contact number for Felton Ascencio pt's son [phone]. 02:26 Reassessment: Patient appears in no apparent distress at this time. Patient and/or jd3 family updated on plan of care and expected duration. Pain level reassessed. Patient is alert, oriented x 3, equal unlabored respirations, skin warm/dry/pink. pt resting in bed with eyes closed, even and unlabored respirations, no distress noted at this time. 03:25 Reassessment: Patient appears in no apparent distress at this time. No changes from jd3 previously documented assessment. Patient and/or family updated on plan of care and expected duration. Pain level reassessed. Patient is alert, oriented x 3, equal unlabored respirations, skin warm/dry/pink. 04:03 Reassessment: Patient appears in no apparent distress at this time. No changes from jd3 previously documented assessment. Patient and/or family updated on plan of care and expected duration. Pain level reassessed. Patient is alert, oriented x 3, equal unlabored respirations, skin warm/dry/pink. 05:09 Reassessment: Patient appears in no apparent distress at this time. No changes from jd3 previously documented assessment. Patient and/or family updated on plan of care and expected duration. Pain level reassessed. Patient is alert, oriented x 3, equal unlabored respirations, skin warm/dry/pink. 05:50 Reassessment: report called to 4th floor, nurse in room, was told they would call back. jd3 06:20 Reassessment: Patient appears in no apparent distress at this time. Patient and/or jd3 family updated on plan of care and expected duration. Pain level reassessed. Patient is alert, oriented x 3, equal unlabored respirations, skin warm/dry/pink. pt reported understanding on need for admit, report given to Gaby ANDRES on 4th floor. Vital Signs: 00:27 BP 142 / 99; Pulse 63; Resp 16; Temp 98; Pulse Ox 100% on R/A; Weight 49.9 kg (R); bp 01:19 BP 143 / 78; Pulse 62; Resp 17 S; Pulse Ox 100% on 2 lpm NC; jd3 02:24 BP 141 / 68; Pulse 64; Resp 17 S; Pulse Ox 100% on 2 lpm NC; jd3 03:24 BP 129 / 58; Pulse 67; Resp 17 S; Pulse Ox 100% on 2 lpm NC; jd3 04:03 BP 127 / 57; Pulse 63; Resp 18 S; Pulse Ox 100% on R/A; Pain 0/10; jd3 05:08 BP 132 / 62; Pulse 63; Resp 17 S; Pulse Ox 100% on 2 lpm NC; Pain 0/10; jd3 06:20 BP 154 / 70; Pulse 71; Resp 17 S; Pulse Ox 100% on R/A; jd3 ED Course: 00:21 Patient arrived in ED. al2 00:25 Wong Minaya, RN is Primary Nurse. bp 00:26 Triage completed. bp 00:30 Arm band placed on. bp 00:31 Primary Nurse role handed off by Wong Minaya, MCKENNA jyamilka 00:31 Danilo Tomas, RN is Primary Nurse. jd3 00:31 Patient has correct armband on for positive identification. Placed in gown. Bed in low bp position. Call light in reach. Side rails up X2. Adult w/ patient. 00:32 Jimmy Santiago MD is Attending Physician. tw4 00:49 EKG done, by ED staff, reviewed by Jimmy Santiago MD. Missed attempt(s): 22 gauge in wi right antecubital area. 01:00 Missed attempt(s): 22 gauge in left hand. Bleeding controlled, band aid applied, bb catheter tip intact. 01:05 Initial lab(s) drawn, by me, sent to lab. Inserted saline lock: 22 gauge in right bb forearm, using aseptic technique. Blood collected. 03:23 Lab(s) recollected, by me, sent to lab. bb 04:38 Jt Hammonds MD is Hospitalizing Provider. tw4 05:53 No provider procedures requiring assistance completed. Patient admitted, IV remains in jd3 place. Administered Medications: No medications were administered Outcome: 04:39 Decision to Hospitalize by Provider. tw4 06:21 Admitted to Tele accompanied by [facility], via wheelchair, room 412, with chart, Report jd3 called to Gaby ANDRES 06:21 Condition: stable 06:21 Instructed on the need for admit. 06:28 Patient left the ED. jd3 Signatures: La Thurman RN RN bb Thompson, Moriah wi Danilo Tomas RN RN jd3 Peltier, Brian, Ina Stevens RN, Terrence, MD MD tw4
--- NOTE | 2017-06-22 05:37 | P.HP ---
Certification for Inpatient Patient admitted to: Observation With expected LOS: <2 Midnights Practitioner: I am a practitioner with admitting privileges, knowledge of patient current condition, hospital course, and medical plan of care. Services: Services provided to patient in accordance with Admission requirements found in Title 42 Section 412.3 of the Code of Federal Regulations Patient History Date of Service: 06/22/17 Reason for admission: acute encephalopathy History of Present Illness: Ms Garcia is an 87 years old woman with history of HTN, Dyslipidemia, who yesterday evening had a right shoulder reduction procedure. It was done under general anesthesia. Once the patient went home, her caregiver was unable to wake her up. 911 was called and when EMS arrived the patient was unresponsive, BP was 67/35. At arrival to the hospital, she was awake, BP was 142/99. At my encounter she was alert and oriented, denied chest pain, SOB, palpitation, nausea or vomitins. No fever or chills history. Allergies amoxicillin Allergy (Unverified 10/04/15 11:39) Unknown codeine Allergy (Unverified 06/21/17 22:43) Unknown - Past Medical/Surgical History -: HTN -: dyslipidemia -: shoulder reduction - Family History Family History: Reviewed- Non-Contributory - Social History Smoking Status: Never smoker Alcohol use: No CD- Drugs: No Place of Residence: Home Review of Systems 10-point ROS is otherwise unremarkable Physical Examination - Physical Exam General: Alert, In no apparent distress HEENT: Atraumatic, PERRLA, Mucous membr. moist/pink, EOMI, Sclerae nonicteric Neck: Supple, 2+ carotid pulse no bruit, No LAD, Without JVD or thyroid abnormality Respiratory: Clear to auscultation bilaterally, Normal air movement Cardiovascular: Regular rate/rhythm, Normal S1 S2 Gastrointestinal: Normal bowel sounds, No tenderness Musculoskeletal: No tenderness Integumentary: No rashes Neurological: Normal speech, Normal strength at 5/5 x4 extr, Normal tone, Normal affect Lymphatics: No axilla or inguinal lymphadenopathy - Studies Laboratory Data (last 24 hrs) 06/22/17 03:20: PT 11.8, INR 1.00, APTT 24.5 06/22/17 03:20: B-Natriuretic Peptide 108 H 06/22/17 03:20: Sodium 132 L, Potassium 4.4, BUN 18, Creatinine 0.72, Glucose 129 H, Magnesium 1.7 L D, Total Bilirubin 0.6, AST 28, ALT 18, Alkaline Phosphatase 54 06/22/17 01:05: WBC 14.1 H D, Hgb 12.3, Hct 37.6, Plt Count 241 Assessment and Plan - Problems (Diagnosis) (1) Acute encephalopathy Current Visit: Yes Status: Acute (2) HTN (hypertension) Current Visit: Yes Status: Acute Qualifiers: Hypertension type: essential hypertension Qualified Code(s): I10 - Essential (primary) hypertension (3) Dyslipidemia Current Visit: Yes Status: Acute (4) satus post shoulder reduction Current Visit: Yes Status: Acute - Plan Ms Ascencio will be admitted to the hospitals under observation due to AMS, in context of recent orthopedic procedure requiring general anesthesia. This is probably related to late effect of anesthetic medication. Will observe the patient today. So far cardiac work up is negative. Lab work remarkable for leukocytosis, but no fever. She may go home later today if remain stable and asymptomatic. - Advance Directives Does patient have a Living Will: Yes Does patient have a Durable POA for Healthcare: Yes - Code Status/Comfort Care Code Status Assessed: Yes Code Status: Full Code
[2017-06-22] MEDS ORDERED: NA CHLORIDE 0.9% 1,000 ML IV SCH (06:25)
[2017-06-22] MEDS ORDERED: ONDANSETRON 4 MG/2 ML VIAL IV PRN (06:25)
[2017-06-22] MEDS ORDERED: ACETAMINOPHEN 500 MG TAB PO PRN (06:25)
--- NOTE | 2017-06-22 07:01 | EKG ---
Test Date: 2017-06-22 Test Time: 00:44:33 Securities Clerk: TONYA MEASUREMENT RESULTS: Intervals: Rate: 62 DE: 132 QRSD: 70 QT: 462 QTc: 468 [place]: P: 84 DE: 132 QRS: 65 T: 75 INTERPRETIVE STATEMENTS: Normal sinus rhythm Septal infarct, age undetermined Abnormal ECG Compared to ECG 06/21/2017 18:06:37 No significant changes Electronically Signed On 06-22-17 07:00:48 CDT by Marino Mckeon
== END 2017-06-22 15:35 | disposition home or self-care (01) ==
LOC: ER 00:20 → ERHOLD 04:39 → 4TH 05:49
PROVIDERS: ADMIT Internal Medicine; ATTEND Internal Medicine
DX: G93.40 Encephalopathy, unspecified (principal); I10 Essential (primary) hypertension; E78.5 Hyperlipidemia, unspecified; Z98.890 Other specified postprocedural states; Z88.0 Allergy status to penicillin
CPT/HCPCS: 36415; 80048; 80076; 82550; 82553; 83735; 83880; 84484; 85025; 85610; 85730; 93005; 97163; 99285; G0378 ×2; J7030

== ENCOUNTER 2018-11-25 09:58 | Emergency (ER) | payer OTHER ==
[2018-11-25] MEDS ORDERED: KETOROLAC 30 MG/ML INJ ONE (10:39)
--- NOTE | 2018-11-25 11:21 | RAD REPORT ---
EXAM DESCRIPTION: US - Extremity Venous Uni Ltd - 11/25/2018 11:16 am CLINICAL HISTORY: PAIN Leg swelling and edema. COMPARISON: No comparisons FINDINGS: Right lower extremity venous system was interrogated with Doppler technique. Normal flow, compressibility and augmentation was noted. There is no DVT present. IMPRESSION: No evidence of right lower extremity deep venous thrombosis.
--- NOTE | 2018-11-25 11:30 | ER ---
Nurse's Notes [facility] [place], [place] Name: Wilma Ascencio Age: 88 yrs Sex: Female : 1930 Arrival Date: 11/25/2018 Time: 10:01 Bed 5 Private MD: Griffin Beverly Diagnosis: Pain in right knee Presentation: 11/25 10:13 Presenting complaint: Patient states: Right knee pain for years that has gotten worse aj1 over the past few days. Reports burning pain, denies any recent injury to the knee. Transition of care: patient was not received from another setting of care. Onset of symptoms is unknown. Risk Assessment: Do you want to hurt yourself or someone else? Patient reports no desire to harm self or others. Initial Sepsis Screen: Does the patient meet any 2 criteria? No. Patient's initial sepsis screen is negative. Does the patient have a suspected source of infection? No. Patient's initial sepsis screen is negative. Care prior to arrival: None. 10:13 Method Of Arrival: Wheelchair aj1 10:13 Acuity: ALAN 4 aj1 Triage Assessment: 10:15 General: Appears in no apparent distress. uncomfortable, Behavior is calm, cooperative, aj1 appropriate for age. Pain: Complains of pain in right knee. Historical: - Allergies: 10:15 Amoxicillin; aj1 10:15 Codeine; aj1 - Home Meds: 10:15 aspirin 81 mg Oral TbEC 1 tab once daily [Active]; Ramipril Oral [Active]; Altace Oral aj1 [Active]; Antivert Oral [Active]; Tramadol Oral [Active]; - PMHx: 10:15 Hyperlipidemia; Hypertension; vertigo; aj1 - PSHx: 10:15 shoulder surgery; Hysterectomy; Knee surgery; aj1 - Immunization history:: Flu vaccine is up to date. - Social history:: Smoking status: Patient/guardian denies using tobacco. - Ebola Screening: : Patient denies travel to an Ebola-affected area in the 21 days before illness onset. Screenin:16 Abuse screen: Denies threats or abuse. Denies injuries from another. Nutritional aj1 screening: No deficits noted. Tuberculosis screening: No symptoms or risk factors identified. 11:59 Fall Risk None identified. aj1 Assessment: 10:16 General: Appears in no apparent distress. uncomfortable, Behavior is calm, cooperative, aj1 appropriate for age. Pain: Complains of pain in right knee Pain does not radiate. Pain currently is 9 out of 10 on a pain scale. Quality of pain is described as burning, Pain began 2-3 days ago. Neuro: Level of Consciousness is awake, alert, obeys commands, Oriented to person, place, time, situation. Cardiovascular: Patient's skin is warm and dry. Respiratory: Airway is patent Respiratory effort is even, unlabored, Respiratory pattern is regular, symmetrical. GI: No signs and/or symptoms were reported involving the gastrointestinal system. : No signs and/or symptoms were reported regarding the genitourinary system. EENT: No signs and/or symptoms were reported regarding the EENT system. Derm: No signs and/or symptoms reported regarding the dermatologic system. Skin is pink, warm \T\ dry. normal. Musculoskeletal: Range of motion: intact in all extremities. 10:42 Reassessment: Patient appears in no apparent distress at this time. ultrasound at sg bedside at this time, will continue to monitor. 11:15 Reassessment: Patient appears in no apparent distress at this time. No changes from aj1 previously documented assessment. Patient and/or family updated on plan of care and expected duration. Pain level reassessed. Patient is alert, oriented x 3, equal unlabored respirations, skin warm/dry/pink. 11:35 Reassessment: Geremias Galo NP at bedside. aj1 Vital Signs: 10:15 BP 155 / 79; Pulse 73; Resp 18; Temp 98.4; Pulse Ox 100% on R/A; Weight 54.43 kg (R); aj1 Height 5 ft. 5 in. (165.10 cm) (R); Pain 9/10; 11:32 BP 161 / 75; Pulse 63; Resp 18; Pulse Ox 100% on R/A; aj1 10:15 Body Mass Index 19.97 (54.43 kg, 165.10 cm) aj1 ED Course: 10:01 Patient arrived in ED. as 10:01 Griffin Beverly MD is Private Physician. as 10:02 [facility]C [facility] kb 10:02 Leif Ruiz MD is Attending Physician. kb 10:13 Manuel, Lauryn, RN is Primary Nurse. aj1 10:13 Triage completed. aj1 10:15 Arm band placed on. aj1 10:16 Patient has correct armband on for positive identification. Bed in low position. Call aj1 light in reach. Adult w/ patient. 10:16 No provider procedures requiring assistance completed. aj1 10:59 US Extremity Venous Unilateral Ltd In Process Unspecified. EDMS 11:29 Griffin Beverly MD is Referral Physician. kb 11:59 Isael wrap to right knee. aj1 11:59 Patient did not have IV access during this emergency room visit. aj1 12:11 Knee Right 3 View XRAY In Process Unspecified. EDMS Administered Medications: 10:41 Drug: TORadol 30 mg Route: IM; Site: right deltoid; sg 11:32 Follow up: Response: No adverse reaction aj1 Outcome: 11:29 Discharge ordered by . kb 11:59 Discharged to home via wheelchair, with family. aj1 11:59 Condition: good 11:59 Discharge instructions given to patient, family, Instructed on discharge instructions, follow up and referral plans. medication usage, Demonstrated understanding of instructions, follow-up care, medications, Prescriptions given X 1. 12:00 Patient left the ED. aj1 Signatures: Dispatcher [employer] EDMS Sophia Galo, SOFTWARE INSTALLER-C SOFTWARE INSTALLER-Ckb Lauryn Jackson, RN RN aj1 Reji Abel, MCKENNA RN Selma Salazar as
--- NOTE | 2018-11-25 11:31 | EDPHYS ---
Physician Documentation [facility] Name: Wilma Ascencio Age: 88 yrs Sex: Female : 1930 Arrival Date: 11/25/2018 Time: 10:01 Bed 5 Private MD: Griffin Beverly ED Physician Leif Ruiz HPI: 11/25 10:12 This 88 yrs old Female presents to ER via Unassigned with complaints of Knee kb Pain. 10:12 The patient presents with pain, that is chronic. The complaints affect the right knee. kb Context: The problem was sustained at an unknown site, resulted from a chronic condition, the patient can partially bear weight, the patient is able to ambulate, can ambulate using a cane. Onset: The symptoms/episode began/occurred 3 day(s) ago. Modifying factors: The symptoms are alleviated by nothing. the symptoms are aggravated by weight bearing. Associated signs and symptoms: The patient has no apparent associated signs or symptoms. Treatment prior to arrival includes: no previous treatment. Severity of symptoms: At their worst the symptoms were moderate, in the emergency department the symptoms are unchanged. The patient has experienced similar episodes in the past. The patient has not recently seen a physician. Pt reports chronic knee pain that has gotten worse over the past few days. . Historical: - Allergies: 10:15 Amoxicillin; aj1 10:15 Codeine; aj1 - Home Meds: 10:15 aspirin 81 mg Oral TbEC 1 tab once daily [Active]; Ramipril Oral [Active]; Altace Oral aj1 [Active]; Antivert Oral [Active]; Tramadol Oral [Active]; - PMHx: 10:15 Hyperlipidemia; Hypertension; vertigo; aj1 - PSHx: 10:15 shoulder surgery; Hysterectomy; Knee surgery; aj1 - Immunization history:: Flu vaccine is up to date. - Social history:: Smoking status: Patient/guardian denies using tobacco. - Ebola Screening: : Patient denies travel to an Ebola-affected area in the 21 days before illness onset. ROS: 10:11 Constitutional: Negative for fever, chills, and weight loss, Cardiovascular: Negative kb for chest pain, palpitations, and edema, Respiratory: Negative for shortness of breath, cough, wheezing, and pleuritic chest pain, Abdomen/GI: Negative for abdominal pain, nausea, vomiting, diarrhea, and constipation, Back: Negative for injury and pain, Skin: Negative for injury, rash, and discoloration, Neuro: Negative for headache, weakness, numbness, tingling, and seizure. 10:11 MS/extremity: Positive for pain, of the right knee. Exam: 10:12 Constitutional: This is a well developed, well nourished patient who is awake, alert, kb and in no acute distress. Head/Face: Normocephalic, atraumatic. Chest/axilla: Normal chest wall appearance and motion. Nontender with no deformity. No lesions are appreciated. Cardiovascular: Regular rate and rhythm with a normal S1 and S2. No gallops, murmurs, or rubs. Normal PMI, no JVD. No pulse deficits. Respiratory: Lungs have equal breath sounds bilaterally, clear to auscultation and percussion. No rales, rhonchi or wheezes noted. No increased work of breathing, no retractions or nasal flaring. Abdomen/GI: Soft, non-tender, with normal bowel sounds. No distension or tympany. No guarding or rebound. No evidence of tenderness throughout. Skin: Warm, dry with normal turgor. Normal color with no rashes, no lesions, and no evidence of cellulitis. Neuro: Awake and alert, GCS 15, oriented to person, place, time, and situation. Cranial nerves II-XII grossly intact. Motor strength 5/5 in all extremities. Sensory grossly intact. Cerebellar exam normal. Normal gait. 10:12 Musculoskeletal/extremity: Extremities: grossly normal except: noted in the right knee: pain, ROM: intact in all extremities, Circulation is intact in all extremities. Sensation intact. Weight bearing: can bear weight with assistance only, uses cane. Vital Signs: 10:15 BP 155 / 79; Pulse 73; Resp 18; Temp 98.4; Pulse Ox 100% on R/A; Weight 54.43 kg (R); aj1 Height 5 ft. 5 in. (165.10 cm) (R); Pain 9/10; 11:32 BP 161 / 75; Pulse 63; Resp 18; Pulse Ox 100% on R/A; aj1 10:15 Body Mass Index 19.97 (54.43 kg, 165.10 cm) aj1 MDM: 10:02 Patient medically screened. kb 10:11 Data reviewed: vital signs, nurses notes. Data interpreted: Pulse oximetry: on room air kb is 100 %. Interpretation: normal. 11:26 Counseling: I had a detailed discussion with the patient and/or guardian regarding: the kb historical points, exam findings, and any diagnostic results supporting the discharge/admit diagnosis, radiology results, the need for outpatient follow up, a orthopedic surgeon, to return to the emergency department if symptoms worsen or persist or if there are any questions or concerns that arise at home. 11:29 Test interpretation: by ED physician or midlevel provider: plain radiologic studies, no kb acute fracture. 11/25 10:10 Order name: Knee Right 3 View XRAY kb 11/25 10:10 Order name: US Extremity Venous Unilateral Ltd; Complete Time: 11:28 kb 11/25 11:28 Order name: Isael Wrap; Complete Time: 11:59 kb Administered Medications: 10:41 Drug: TORadol 30 mg Route: IM; Site: right deltoid; sg 11:32 Follow up: Response: No adverse reaction aj1 Disposition: 11/25/18 11:29 Discharged to Home. Impression: Pain in right knee. - Condition is Stable. - Discharge Instructions: Knee Pain, [id number]. - Prescriptions for Tramadol 50 mg Oral Tablet - take 1 tablet by ORAL route every 8 hours as needed; 12 tablet. - Medication Reconciliation Form, Thank You Letter, Antibiotic Education, Prescription Opioid Use form. - Follow up: Emergency Department; When: As needed; Reason: Worsening of condition. Follow up: Griffin Beverly; When: 2 - 3 days; Reason: Recheck today's complaints, Continuance of care, Re-evaluation by your physician. Signatures: Dispatcher [employer] EDPA Sophia Galo, TEST AUTOMATION ARCHITECT-C TEST AUTOMATION ARCHITECT-Lauryn Miller RN RN aj1 Reji Abel RN RN sg Corrections: (The following items were deleted from the chart) 12:00 11:29 11/25/2018 11:29 Discharged to Home. Impression: Pain in right knee. Condition is aj1 Stable. Discharge Instructions: Knee Pain, [id number]. Prescriptions for Tramadol 50 mg Oral Tablet - take 1 tablet by ORAL route every 8 hours as needed; 12 tablet. and Forms are Medication Reconciliation Form, Thank You Letter, Antibiotic Education, Prescription Opioid Use. Follow up: Emergency Department; When: As needed; Reason: Worsening of condition. Follow up: Griffin Beverly; When: 2 - 3 days; Reason: Recheck today's complaints, Continuance of care, Re-evaluation by your physician. kb
[2018-11-25 12:06] VITALS: TEMP 98.4; O2SAT 100
[2018-11-25 12:07] VITALS: BP 161/75
--- NOTE | 2018-11-25 12:19 | RAD REPORT ---
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 No acute fracture seen. Vascular calcification evident. A small suprapatellar joint effusion present.
== END 2018-11-25 12:00 | disposition home or self-care (01) ==
LOC: ER 09:58
DX: M25.561 Pain in right knee (principal); I10 Essential (primary) hypertension; R42 Dizziness and giddiness; Z88.6 Allergy status to analgesic agent; Z88.1 Allergy status to other antibiotic agents
CPT/HCPCS: 93971; 96372; 99284

== ENCOUNTER 2018-12-04 09:18 | Emergency (ER) | payer OTHER ==
[2018-12-04] MEDS ORDERED: HYDRALAZINE HCL 20 MG/ML VIAL ONE (09:55)
[2018-12-04 10:15] LABS: Absolute Lymphocytes (CBC) 1.1 K/uL (0.7-4.9); Basophils % 0.3 % (0-1.3); Lymphocytes % 19.1 % (15.3-44.8); MPV 8.8 fL (7.6-11.3); RBC Red Blood Cell Count 4.72 M/uL (3.86-4.86)
[2018-12-04 10:41] LABS: Magnesium 2.6 mg/dL (1.8-2.4); Potassium 4.2 mmol/L (3.5-5.1)
[2018-12-04] MEDS ORDERED: AMLODIPINE 5 MG TAB ONE (10:50)
--- NOTE | 2018-12-04 10:52 | ER ---
Nurse's Notes [facility] Name: Wilma Ascencio Age: 88 yrs Sex: Female : 1930 Arrival Date: 12/04/2018 Time: 09:20 Bed 7 Private MD: Diagnosis: Essential (primary) hypertension Presentation: 12/04 09:34 Presenting complaint: Patient states: i have been having high blood pressure for 1 tw2 week, i also have a dull KAY and feel lightheaded that has been going on for a week as well, i got a steroid injection in my knee 1 week ago as well, i dont know if that caused it or not, i have an appt with my doctor on Thursday and had a CT done here yesterday but we didn't get the results yet. Transition of care: patient was not received from another setting of care. Onset of symptoms was December 04, 2018. Risk Assessment: Do you want to hurt yourself or someone else? Patient reports no desire to harm self or others. Initial Sepsis Screen: Does the patient meet any 2 criteria? No. Patient's initial sepsis screen is negative. Does the patient have a suspected source of infection? No. Patient's initial sepsis screen is negative. Care prior to arrival: None. 09:34 Method Of Arrival: Wheelchair tw2 09:34 Acuity: ALAN 3 tw2 Triage Assessment: 09:36 General: Appears in no apparent distress. slender, well groomed, Behavior is calm, tw2 cooperative, appropriate for age. Pain: Complains of pain in "dull headache". Historical: - Allergies: 09:32 Amoxicillin; hb 09:32 Codeine; hb - Home Meds: 09:32 Altace Oral [Active]; Antivert Oral [Active]; aspirin 81 mg Oral TbEC 1 tab once daily hb [Active]; Ramipril Oral [Active]; Tramadol Oral [Active]; - PMHx: 09:32 Hyperlipidemia; Hypertension; Vertigo; hb - PSHx: 09:32 shoulder surgery; Hysterectomy; Knee surgery; hb - Immunization history:: Adult Immunizations up to date. - Social history:: Smoking status: Patient/guardian denies using tobacco. - Ebola Screening: : No symptoms or risks identified at this time. Screenin:33 Abuse screen: Denies threats or abuse. Denies injuries from another. Nutritional hb screening: No deficits noted. Tuberculosis screening: No symptoms or risk factors identified. Fall Risk None identified. Assessment: 10:00 General: Appears in no apparent distress. Behavior is calm, cooperative. Pain: Denies hb pain. Neuro: Level of Consciousness is awake, alert, obeys commands, Oriented to person, place, time, situation. Cardiovascular: Capillary refill < 3 seconds Patient's skin is warm and dry. Respiratory: Airway is patent Respiratory effort is even, unlabored, Respiratory pattern is regular, symmetrical, Breath sounds are clear bilaterally. GI: No signs and/or symptoms were reported involving the gastrointestinal system. : No signs and/or symptoms were reported regarding the genitourinary system. EENT: No signs and/or symptoms were reported regarding the EENT system. Derm: Skin is intact, is healthy with good turgor. Musculoskeletal: No signs and/or symptoms reported regarding the musculoskeletal system. 10:43 Reassessment: Patient appears in no apparent distress at this time. No changes from tw2 previously documented assessment. Patient and/or family updated on plan of care and expected duration. Pain level reassessed. Patient is alert, oriented x 3, equal unlabored respirations, skin warm/dry/pink. Vital Signs: 09:35 BP 198 / 88; Pulse 74; Resp 17; Temp 97.9(TE); Pulse Ox 98% on R/A; Weight 56.7 kg (R); tw2 Pain 0/10; 10:08 BP 187 / 105; Pulse 70; Resp 17; Pulse Ox 100% on R/A; tw2 10:41 BP 178 / 110; Pulse 76; Resp 17; Pulse Ox 99% on R/A; tw2 10:47 BP 175 / 79 LA; tw2 ED Course: 09:20 Patient arrived in ED. as 09:25 Elías Badillo PA is PHCP. jr8 09:25 Ammon Welsh MD is Attending Physician. jr8 09:32 Arm band placed on. hb 09:33 Patient has correct armband on for positive identification. Bed in low position. Call hb light in reach. Side rails up X 1. 09:34 Danica Rivera, MCKENNA is Primary Nurse. tw2 09:35 Triage completed. tw2 09:58 EKG done, by ED staff, reviewed by Ammon Welsh MD. ms 10:01 No provider procedures requiring assistance completed. Inserted saline lock: 22 gauge hb in left antecubital area, using aseptic technique. Blood collected. 10:58 IV discontinued, intact, bleeding controlled, No redness/swelling at site. Pressure tw2 dressing applied. Administered Medications: 10:02 Drug: hydrALAZINE 10 mg Route: IV; Rate: calculated rate; Site: left antecubital; hb 10:04 Follow up: IV Status: Completed infusion tw2 10:52 Drug: amLODIPine 5 mg Route: PO; tw2 10:59 Follow up: Response: No adverse reaction tw2 Outcome: : Discharge ordered by . jr8 10:58 Discharged to home via wheelchair, with family. tw2 10:58 Condition: stable 10:58 Discharge instructions given to patient, family, Instructed on discharge instructions, follow up and referral plans. medication usage, Demonstrated understanding of instructions, follow-up care, medications, Prescriptions given X 1. 10:59 Patient left the ED. tw2 Signatures: Selma Quinteros Maria ms Elías Badillo, JUVENAL PA jr8 Camryn Soliz, RN RN Danica Meraz RN RN tw2
--- NOTE | 2018-12-04 10:52 | EDPHYS ---
Physician Documentation [facility] Name: Wilma Ascencio Age: 88 yrs Sex: Female : 1930 Arrival Date: 12/04/2018 Time: 09:20 Bed 7 Private MD: ED Physician Ammon Welsh HPI: 12/04 09:50 This 88 yrs old Female presents to ER via Wheelchair with complaints of High jr8 Blood Pressure. 09:50 The patient has elevated blood pressure and discovered this at hospital. Onset: The jr8 symptoms/episode began/occurred last week. Associated signs and symptoms: Pertinent positives: headache, weakness, Pertinent negatives: chest pain, dizziness, lightheadedness, nausea, visual changes, vomiting. Severity of symptoms: At its worst the blood pressure was moderate, in the emergency department the blood pressure is improved. The patient has not experienced similar symptoms in the past. Pt takes ramipril 5mg BID and has been noticing her BP rising for the last week. Had a mechanical fall 3 days ago and had a CT head without acute findings yesterday. Today only C/O feeling uneasy and generally weak. Historical: - Allergies: 09:32 Amoxicillin; hb 09:32 Codeine; hb - Home Meds: 09:32 Altace Oral [Active]; Antivert Oral [Active]; aspirin 81 mg Oral TbEC 1 tab once daily hb [Active]; Ramipril Oral [Active]; Tramadol Oral [Active]; - PMHx: 09:32 Hyperlipidemia; Hypertension; Vertigo; hb - PSHx: 09:32 shoulder surgery; Hysterectomy; Knee surgery; hb - Immunization history:: Adult Immunizations up to date. - Social history:: Smoking status: Patient/guardian denies using tobacco. - Ebola Screening: : No symptoms or risks identified at this time. ROS: 09:50 Constitutional: Negative for fever, chills, and weight loss, Eyes: Negative for injury, jr8 pain, redness, and discharge, ENT: Negative for injury, pain, and discharge, Neck: Negative for injury, pain, and swelling, Cardiovascular: Negative for chest pain, palpitations, and edema, Respiratory: Negative for shortness of breath, cough, wheezing, and pleuritic chest pain, Abdomen/GI: Negative for abdominal pain, nausea, vomiting, diarrhea, and constipation, MS/Extremity: Negative for injury and deformity, Skin: Negative for injury, rash, and discoloration. 09:50 Neuro: Positive for headache. Exam: 09:50 Constitutional: This is a well developed, well nourished patient who is awake, alert, jr8 and in no acute distress. Head/Face: Normocephalic, atraumatic. Eyes: Pupils equal round and reactive to light, extra-ocular motions intact. Lids and lashes normal. Conjunctiva and sclera are non-icteric and not injected. Cornea within normal limits. Periorbital areas with no swelling, redness, or edema. ENT: Nares patent. No nasal discharge, no septal abnormalities noted. Tympanic membranes are normal and external auditory canals are clear. Oropharynx with no redness, swelling, or masses, exudates, or evidence of obstruction, uvula midline. Mucous membranes moist. Neck: Trachea midline, no thyromegaly or masses palpated, and no cervical lymphadenopathy. Supple, full range of motion without nuchal rigidity, or vertebral point tenderness. No Meningismus. Chest/axilla: Normal chest wall appearance and motion. Nontender with no deformity. No lesions are appreciated. Cardiovascular: Regular rate and rhythm with a normal S1 and S2. No gallops, murmurs, or rubs. Normal PMI, no JVD. No pulse deficits. Respiratory: Lungs have equal breath sounds bilaterally, clear to auscultation and percussion. No rales, rhonchi or wheezes noted. No increased work of breathing, no retractions or nasal flaring. Abdomen/GI: Soft, non-tender, with normal bowel sounds. No distension or tympany. No guarding or rebound. No evidence of tenderness throughout. Back: No spinal tenderness. No costovertebral tenderness. Full range of motion. MS/ Extremity: Pulses equal, no cyanosis. Neurovascular intact. Full, normal range of motion. Neuro: Awake and alert, GCS 15, oriented to person, place, time, and situation. Cranial nerves II-XII grossly intact. Motor strength 5/5 in all extremities. Sensory grossly intact. Cerebellar exam normal. Normal gait. Vital Signs: 09:35 BP 198 / 88; Pulse 74; Resp 17; Temp 97.9(TE); Pulse Ox 98% on R/A; Weight 56.7 kg (R); tw2 Pain 0/10; 10:08 BP 187 / 105; Pulse 70; Resp 17; Pulse Ox 100% on R/A; tw2 10:41 BP 178 / 110; Pulse 76; Resp 17; Pulse Ox 99% on R/A; tw2 10:47 BP 175 / 79 LA; tw2 MDM: 09:25 Patient medically screened. jr8 10:49 Data reviewed: vital signs, nurses notes, lab test result(s). Data interpreted: Pulse jr8 oximetry: on room air is 99 %. Interpretation: normal. Counseling: I had a detailed discussion with the patient and/or guardian regarding: the historical points, exam findings, and any diagnostic results supporting the discharge/admit diagnosis, the presence of at least one elevated blood pressure reading (>120/80) during this emergency department visit, lab results, the need for outpatient follow up, a family practitioner. Response to treatment: the patient's symptoms have markedly improved after treatment. ED course: Pt Bp responded well to hydralazine IV, had apt with PCP on Thursday morning, discussed addition of amlodipine in addition to her BID ramipril. Discussed return precautions. . 12/04 09:47 Order name: Basic Metabolic Panel; Complete Time: 10:42 12/04 09:47 Order name: CBC with Diff; Complete Time: 10:30 12/04 09:47 Order name: Magnesium; Complete Time: 10:42 12/04 09:47 Order name: EKG; Complete Time: 09:47 12/04 09:47 Order name: Cardiac monitoring; Complete Time: 09:57 12/04 09:47 Order name: EKG - Nurse/Tech; Complete Time: :57 12/04 09:47 Order name: IV Saline Lock; Complete Time: 10:41 12/04 09:47 Order name: Labs collected and sent; Complete Time: 10:41 12/04 09:47 Order name: O2 Per Protocol; Complete Time: :58 12/04 09:47 Order name: O2 Sat Monitoring; Complete Time: :58 Administered Medications: 10:02 Drug: hydrALAZINE 10 mg Route: IV; Rate: calculated rate; Site: left antecubital; hb 10:04 Follow up: IV Status: Completed infusion tw2 10:52 Drug: amLODIPine 5 mg Route: PO; tw2 10:59 Follow up: Response: No adverse reaction tw2 Disposition: 11:18 Co-signature as Attending Physician, Ammon Welsh MD. rn Disposition: 12/04/18 10:52 Discharged to Home. Impression: Essential (primary) hypertension. - Condition is Stable. - Discharge Instructions: Hypertension, How to Take Your Blood Pressure, [id number], DASH Eating Plan, Managing Your Hypertension. - Prescriptions for amlodipine 5 mg Oral tablet - take 1 tablet by ORAL route once daily; 20 tablet. - Medication Reconciliation Form, Thank You Letter form. - Follow up: Private Physician; When: 2 - 3 days; Reason: Recheck today's complaints, Re-evaluation by your physician. - Problem is chronic. - Symptoms have improved. Signatures: Dispatcher [employer] EDMS Ammon Welsh MD MD rn Roszak, Josh, PA PA jr8 Camryn Soliz RN RN hb Wise, Tara, RN RN tw2 Corrections: (The following items were deleted from the chart) 10:59 10:52 12/04/2018 10:52 Discharged to Home. Impression: Essential (primary) tw2 hypertension. Condition is Stable. Forms are Medication Reconciliation Form, Thank You Letter, Antibiotic Education, Prescription Opioid Use. Follow up: Private Physician; When: 2 - 3 days; Reason: Recheck today's complaints, Re-evaluation by your physician. Problem is chronic. Symptoms have improved. jr8
[2018-12-04 11:06] VITALS: TEMP 97.9
[2018-12-04 11:08] VITALS: O2SAT 99
[2018-12-04 11:09] VITALS: BP 175/79
--- NOTE | 2018-12-05 06:17 | EKG ---
Test Date: 2018-12-04 Test Time: 09:53:43 Distribution A Class Lineman: MEASUREMENT RESULTS: Intervals: Rate: 65 HI: 144 QRSD: 84 QT: 386 QTc: 401 [place]: P: 67 HI: 144 QRS: 16 T: 62 INTERPRETIVE STATEMENTS: Normal sinus rhythm Minimal voltage criteria for LVH, may be normal variant Borderline ECG Compared to ECG 06/22/2017 00:44:33 Left ventricular hypertrophy now present Myocardial infarct finding no longer present Electronically Signed On 12-05-18 06:16:52 CDT by Marino Mckeon
== END 2018-12-04 10:59 | disposition home or self-care (01) ==
LOC: ER 09:18
DX: I10 Essential (primary) hypertension (principal); E78.5 Hyperlipidemia, unspecified; Z88.6 Allergy status to analgesic agent; Z88.1 Allergy status to other antibiotic agents
CPT/HCPCS: 93005; 85025; 80048; 36415; 83735; 96374; 99284; J0360